=== PATIENT | male | born 1990 | race Two or more races ===

== ENCOUNTER 2021-04-26 07:59 | Emergency (ER) | payer BC, OTHER ==
--- NOTE | 2021-04-26 08:31 | EDM.PDOC ---
ED HPI GENERAL MEDICAL PROBLEM - General Chief Complaint: Chest Pain Stated Complaint: CHEST PAIN AND NOSE BLEEDS Time Seen by Provider: 04/26/21 08:26 Source of Information: Reports: Patient History Limitations: Reports: No Limitations - History of Present Illness INITIAL COMMENTS - FREE TEXT/NARRATIVE: 30-year-old male presents to the ED for evaluation of right-sided chest pain. Pain is just just to the right of the midline or sternum and radiates from his epigastrium up into his throat. He is aware of GERD and is taking Prilosec daily and has not had any increased attacks of reflux recently. He is experiencing a sharp stabbing piercing pain underneath his right shoulder blade that seems to travel anterior through his chest at times. Denies cough sputum production fever or chills. Has been tested for Covid but never had the illness. Pain comes and goes off and on over the last week. It was so bad a few days ago that he just felt like he might pass out due to the severity of the pain. No true pleuritic component to the pain. He is in no respiratory distress and O2 sats are 98% on room air. Onset: Sudden Onset Date: 04/23/21 Duration: Day(s):, Waxing/Waning Location: Reports: Chest (Central chest discomfort slightly to the right of the midline radiating through to his back under his shoulder blade.) Quality: Reports: Ache, Stabbing Severity: Moderate (Occasional sharp stabbing and piercing.) Improves with: Reports: None Worsens with: Reports: None, Other (Pain is not necessarily made worse by any movement or pushing pulling activities.) Context: Reports: Other (Spontaneous occurrence.). Denies: Activity, Exercise, Lifting, Sick Contact, Trauma Associated Symptoms: Reports: No Other Symptoms, Chest Pain (See history of present illness). 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 Chest Pain Score (Numeric/FACES): 6 - Related Data Allergies Allergy/AdvReac Type Severity Reaction Status Date / Time No Known Allergies Allergy Verified 04/26/21 08:15 Home Meds: Home Meds Dicyclomine [Bentyl] 20 mg PO Q6H PRN #12 tablet 04/26/21 [Rx] Omeprazole 20 mg PO DAILY 04/26/21 [History] Past Medical History Gastrointestinal History: Reports: GERD (Well-controlled on Prilosec 20 mg daily) Endocrine/Metabolic History: Reports: Obesity/BMI 30+ Social & Family History - Tobacco Use Tobacco Use Status *Q: Never Tobacco User - Caffeine Use Caffeine Use: Reports: Coffee, Energy Drinks - Alcohol Use Days Per Week of Alcohol Use: 3 Number of Drinks Per Day: 2 Total Drinks Per Week: 6 - Recreational Drug Use Recreational Drug Use: Yes Drug Use in Last 12 Months: Yes Recreational Drug Type: Reports: Marijuana/Hashish - Living Situation & Occupation Living situation: Reports: Single Occupation: Student ED ROS GENERAL - Review of Systems Review Of Systems: See Below Constitutional: Denies: Fever, Chills, Malaise, Weakness, Fatigue, Decreased Appetite, Weight Loss HEENT: Reports: No Symptoms Respiratory: Reports: Other. Denies: Shortness of Breath, Wheezing, Pleuritic Chest Pain, Cough, Sputum, Hemoptysis Cardiovascular: Reports: Chest Pain (See history of present illness), Blood Pressure Problem. Denies: Claudication, Dyspnea on Exertion, Edema, Lightheadedness, Orthopnea, Palpitations Endocrine: Reports: No Symptoms GI/Abdominal: Reports: No Symptoms : Reports: No Symptoms Musculoskeletal: Reports: Back Pain (Pain between his shoulder blades or up underneath the right shoulder blade rating through to his) Skin: Reports: No Symptoms ( anterior chest at times.) Neurological: Reports: No Symptoms Psychiatric: Reports: No Symptoms Hematologic/Lymphatic: Reports: No Symptoms Immunologic: Reports: No Symptoms ED EXAM, GENERAL - Physical Exam Exam: See Below Exam Limited By: No Limitations General Appearance: Alert, WD/WN, No Apparent Distress, Other (Temperature is 36.2 degrees. Heart rate 80 and sinus. Respiratory 16. O2 sats 98% room air. Initial BP is markedly elevated at 1 7113. It will be rechecked) Eye Exam: Bilateral Eye: Normal Inspection (No scleral icterus or blepharal pallor.) Neck: Normal Inspection, Supple, Non-Tender, Full Range of Motion. No: Carotid Bruit, Lymphadenopathy (L), Lymphadenopathy (R) Respiratory/Chest: No Respiratory Distress, Lungs Clear, Normal Breath Sounds, No Accessory Muscle Use, Other (Did not identify any chest wall pain on palpation of ribs midclavicular line or parasternally on each side.) Cardiovascular: Normal Peripheral Pulses, Regular Rate, Rhythm, No Edema, No Gallop, No Murmur, No Rub Peripheral Pulses: 3+: Carotid (L), Carotid (R) GI/Abdominal: Normal Bowel Sounds, Soft, Non-Tender, No Organomegaly, No Mass, Pelvis Stable, Other (Mildly obese.) Back Exam: Normal Inspection, Full Range of Motion, Other. No: CVA Tenderness ( L), CVA Tenderness (R) Extremities: Normal Inspection, Normal Range of Motion, Non-Tender, No Pedal Edema (I cannot find any paraspinal muscle spasm or rib head subluxation on either side of his thoracic spine) Neurological: Alert, Oriented, CN II-XII Intact, Normal Cognition, Normal Gait Psychiatric: Normal Affect, Normal Mood Skin Exam: Warm, Dry, Intact, Normal Color, No Rash #1 Interpretation EKG Date: 04/26/21 Time: 08:16 Rhythm: NSR Rate (Beats/Min): 73 [place]: Normal P-Wave: Present QRS: Other (RSR prime wave V1 consider normal variant) ST-T: Normal QT: Normal EKG Interpretation Comments: Essentially normal ECG Course - Vital Signs Last Recorded V/S: Last Vital Signs Temp 36.2 C 04/26/21 08:16 Pulse 80 04/26/21 08:16 Resp 16 04/26/21 08:16 BP 170/113 H 04/26/21 08:16 Pulse Ox 98 04/26/21 08:16 - Orders/Labs/Meds Orders: Active Orders 24 hr Category Date Time Status EKG Documentation Completion [RC] STAT Care 04/26/21 08:33 Active Chest 2V [CR] Stat Exams 04/26/21 08:26 Taken - Radiology Interpretation Free Text/Narrative:: 30-year-old male presents to the ED for evaluation of recurrent pain right chest over the last 4 days. Occasionally pain is very sharp stabbing and lancinating like he has been shot by an arrow with from the back through to the front right side of chest. Some pain also radiating from the midline of the sternum up into his anterior neck suggestive of esophageal spasm. He has a history of GERD and he is obese. Plan 2 view chest x-ray to be done. - Re-Assessments/Exams Free Text/Narrative Re-Assessment/Exam: 04/26/21 09:03 view x-rays of the chest are within normal limits. No abnormalities appreciated in the lung parenchyma. Cardiac silhouette and mediastinum are normal. Visualized ribs appear normal. 04/26/21 09:11 did speak with the patient at length and it is my impression that he is likely suffering esophageal spasm from occult reflux during the night. Pain radiates up into his neck and throat at times and comes out of the blue. Is not made worse by breathing. I can find no musculoskeletal source of back or chest wall pain. I have advised him to increase his Prilosec to 20 mg twice daily morning and bedtime for the next week. I will send him home with Bentyl tablets 20 mg strength to be used on a as needed basis for when the spasm is occurring. If symptoms persist longer than the next week to 10 days he would be a candidate for an upper EGD. Departure - Departure Time of Disposition: :12 Disposition: Home, Self-Care 01 Reason for Transfer *Q: Other Condition: Fair Clinical Impression: Non-cardiac chest pain, Esophageal spasm Prescriptions: Dicyclomine [Bentyl] 20 mg PO Q6H PRN #12 tablet PRN Reason: Esophageal spasm Referrals: Leona Conteh MD [Primary Care Provider] - Forms: ED Department Discharge Additional Instructions: Central chest discomfort that radiates up into your neck and throat. You are also feeling it just to the right of the sternum in particular underneath your right shoulder blade. Heart tracing proved to be completely normal with no evidence of heart related illness. Two-view chest x-ray also does not reveal any abnormalities within the lungs or ribs to account for this pain. It is my suspicion that you were suffering esophageal spasm likely from gastroesophageal reflux that occurred during the night while sleeping and therefore you were not aware of this. One bad night of reflux can irritate the lining of the food pipe for the next week to 10 days. Really cold and really hot fluids might cause esophageal spasm. Soda pop might do it as well. Suggest increasing your Prilosec to 20 mg twice daily bedtime and morning for the next 7 days to allow the food pipe to heal. May use Bentyl 20 mg tablet on a as needed basis every 6-8 hours when you experience this type of spastic pain. If not completely back to normal in 10 to 12 days I would suggest follow-up with personal care physician to arrange for an upper GI endoscopy to explore the food pipe and stomach. It would certainly be okay to use Tums or Rolaids when you develop this type of discomfort as well. Sepsis Event Note (ED) - Evaluation Sepsis Screening Result: No Definite Risk - Focused Exam Vital Signs: Vital Signs Temp Pulse Resp BP Pulse Ox 04/26/21 08:16 36.2 C 80 16 170/113 H 98 - My Orders Last 24 Hours: My Active Orders 04/26/21 08:26 Chest 2V [CR] Stat 04/26/21 08:33 EKG Documentation Completion [RC] STAT - Assessment/Plan Last 24 Hours: My Active Orders 04/26/21 08:26 Chest 2V [CR] Stat 04/26/21 08:33 EKG Documentation Completion [RC] STAT
--- NOTE | 2021-04-26 09:22 | CR ---
Chest: 2 views of the chest were obtained. Comparison: No prior chest imaging is available. Heart size and mediastinum are normal. Lungs are clear with no acute parenchymal change. Bony structures are within normal limits for the patient's age. Impression: 1. Nothing acute is seen on 2 view chest x-ray. Diagnostic code #1
== END 2021-04-26 09:40 | disposition home or self-care (01) ==
LOC: JD.ED 07:59
DX: R07.89 Other chest pain (principal); K22.4 Dyskinesia of esophagus; K21.9 Gastro-esophageal reflux disease without esophagitis; E66.9 Obesity, unspecified
CPT/HCPCS: 71046; 71046-26; 93005; 93010; 99284; 99285-25

== ENCOUNTER 2023-10-31 10:32 | Emergency (ER) | payer BC, OTHER ==
[2023-10-31] MEDS ORDERED: Sodium Chloride 0.9% 10 ML Syringe FLUSH PRN (10:53)
[2023-10-31] MEDS ORDERED: Ketorolac 30 MG/ML SDV IVPUSH ONE (10:59)
[2023-10-31] MEDS ORDERED: Ondansetron 4 MG/2 ML SDV IVPUSH ONE (10:59)
[2023-10-31] MEDS ORDERED: Sodium Chloride 0.9% 1,000 ML IV ONE (11:04)
[2023-10-31 11:07] LABS: BASOPHILS PERCENT AUTO 0.3 % (0.0-1.0); EOSINOPHILS PERCENT AUTO 0.2 % (0.0-6.0); HEMATOCRIT 48.5 % (42.0-52.0); IMMATURE GRAN ABSOLUTE AUTO 0.03 K/mm3 (0.00-0.05); IMMATURE GRAN PERCENT AUTO 0.3 % (0.0-0.4); LYMPHOCYTES ABSOLUTE AUTO 1.1 K/mm3 (1.0-4.8); LYMPHOCYTES PERCENT AUTO 11.2 % (24.0-44.0); MEAN CORPUSCULAR HEMOGLOBIN 33.3 pg (28.0-32.0); MEAN CORPUSCULAR HGB CONC 37.1 g/dl (32.0-36.0); MEAN CORPUSCULAR VOLUME 89.8 fl (83.0-99.0); MEAN PLATELET VOLUME 10.2 fl (9.4-12.4); MONOCYTES ABSOLUTE AUTO 0.3 K/mm3 (0.0-0.8); MONOCYTES PERCENT AUTO 2.9 % (0.0-8.0); NEUTROPHILS ABSOLUTE AUTO 8.3 K/mm3 (1.8-7.7); NEUTROPHILS PERCENT AUTO 85.1 % (41.0-71.0); PLATELET COUNT,PLT 263 K/mm3 (150-400); WHITE BLOOD CELL COUNT,WBC 9.78 K/mm3 (3.9-11.3)
[2023-10-31 11:26] LABS: A/G RATIO 1.2 (1-2); ALANINE AMINOTRANSFERASE,ALT 27 U/L (16-63); ALBUMIN 4.7 g/dl (3.4-5.0); ALKALINE PHOSPHATASE 62 U/L (46-116); ANION GAP 18.3 (5-15); ASPARTATE AMNIOTRANSFERASE,AST 18 U/L (15-37); BLOOD UREA NITROGEN,BUN 17 mg/dL (7-18); CALCIUM 9.9 mg/dL (8.5-10.1); CARBON DIOXIDE,CO2 24 mEq/L (21-32); CHLORIDE,CL 100 mEq/L (98-107); EST CRCL DRUG DOSING (CG) 106.05 mL/min; ESTIMATED GFR 103 mL/min (>60); GLUCOSE RANDOM 119 mg/dL (70-99); LIPASE 41 U/L (16-77); MAGNESIUM 1.5 mg/dL (1.8-2.4); POTASSIUM,K 3.3 mEq/L (3.5-5.1); PROTEIN TOTAL,TP 8.7 g/dl (6.4-8.2); SODIUM,NA 139 mEq/L (136-145)
[2023-10-31 11:31] LABS: C-REACTIVE PROTEIN < 0.2 mg/dL (<1.0)
[2023-10-31] MEDS ORDERED: Magnesium Sulfate/Water 2 GM in Premix Bag 1 BAG IV ONE (11:54)
[2023-10-31] MEDS ORDERED: Potassium Chloride 20 MEQ Tab.ER PO ONE (11:54)
[2023-10-31] MEDS ORDERED: LORazepam 2 MG/ML SDV IVPUSH ONE (11:58)
[2023-10-31 12:38] LABS: CORONAVIRUS COVID-19 NAA NEGATIVE (NEGATIVE); INFLUENZA A NAA NEGATIVE (NEGATIVE); RESPIRATORY SYNCYTIAL VIR NAA NEGATIVE (NEGATIVE)
[2023-10-31] MEDS ORDERED: Iopamidol 755 Mg/ML 100 ML Bottle IVPUSH ONE (12:52)
[2023-10-31] MEDS ORDERED: Sodium Chloride 0.9% 100 ML IV SCH (13:00)
[2023-10-31] MEDS ORDERED: Pantoprazole 40 MG Vial IVPUSH ONE (13:08)
[2023-10-31] MEDS ORDERED: Prochlorperazine 10 MG/2 ML SDV IVPUSH ONE (13:14)
[2023-10-31 14:08] LABS: APPEARANCE,URINE CLEAR (Clear); BILIRUBIN,URINE NEGATIVE (Negative); COLOR,URINE YELLOW (Yellow); GLUCOSE,URINE NEGATIVE (Negative); KETONES,URINE 2+ (Negative); LEUKOCYTE ESTERASE,URINE NEGATIVE (Negative); NITRITE,URINE NEGATIVE (Negative); OCCULT BLOOD,URINE NEGATIVE (Negative); PH,URINE 8.5 (5.0-8.0); PROTEIN,URINE NEGATIVE (Negative); UROBILINOGEN,URINE 0.2 (0.2-1.0)
[2023-10-31] MEDS ORDERED: Dicyclomine 10 MG Cap PO ONE (14:32)
[2023-10-31 14:34] LABS: BACTERIA,URINE RARE /hpf (FEW); EPITHELIAL CELLS,URINE 0-5 /hpf (0-5); MUCUS,URINE RARE /hpf (FEW); RBC,URINE 0-5 /hpf (0-5); WBC,URINE 0-5 /hpf (0-5)
[2023-10-31] MEDS ORDERED: Potassium Chloride 20 MEQ Tab.ER ONE (16:03)
== END 2023-10-31 16:15 | disposition home or self-care (01) ==
LOC: JD.ED 10:32
DX: A08.4 Viral intestinal infection, unspecified (principal); K21.9 Gastro-esophageal reflux disease without esophagitis; E66.9 Obesity, unspecified; Z79.899 Other long term (current) drug therapy; Z20.822 Contact with and (suspected) exposure to COVID-19; Z68.32 Body mass index [BMI] 32.0-32.9, adult
CPT/HCPCS: 0241U; 36415; 71260; 74177; 80053; 81001; 83690; 83735; 85025; 86140; 96361; 96365; 96366; 96375; 99284; A9270; C9113; J0780; J1885; J2060; J2405; J3475; J3490; J7030; Q9967